=== PATIENT | female | born 1990 | race Caucasian/White ===

== ENCOUNTER 2019-07-03 15:40 | Emergency (ER) | payer MEDICARE, MEDICAID ==
[~2019-07-03] VITALS: Ht 172.7 cm; Wt 139.1 kg
[~2019-07-03 15:40] MED LIST: ASCO-139 PO; CARB200T PO; CHOL200077 PO; CYAN500T63 PO; DULO-31 PO; OMEG-79 PO; TRAM50TA2 PO
[2019-07-03 16:22] VITALS: BP 138/89
== END 2019-07-03 17:04 | disposition home or self-care (01) ==
LOC: ER 15:40
DX: H02.89 Other specified disorders of eyelid (principal); F41.9 Anxiety disorder, unspecified; F32.9 Major depressive disorder, single episode, unspecified; Z98.890 Other specified postprocedural states; Z79.899 Other long term (current) drug therapy; Z88.6 Allergy status to analgesic agent
CPT/HCPCS: 99281

== ENCOUNTER 2019-07-04 08:53 | Day surgery (SDC) | payer MEDICARE, MEDICAID ==
[2019-06-30 15:03] LABS: BASOPHILS % (AUTO) 0.8 % (0-1); EOSINOPHILS # (AUTO) 0.3 X10'3 (0-0.9); EOSINOPHILS % (AUTO) 4.9 % (0-6); LYMPHOCYTES # (AUTO) 2.4 X10'3 (1.1-4.8); LYMPHOCYTES % (AUTO) 37.3 % (21-51); MEAN CORPUSCULAR HEMOGLOBIN 31.8 PG (27.0-31.0); MEAN CORPUSCULAR HGB CONC 34.4 g/dL (33.0-36.5); MEAN CORPUSCULAR VOLUME 92.5 FL (78-98); MEAN PLATELET VOLUME 8.1 FL (7.4-10.4); MONOCYTES # (AUTO) 0.7 X10'3 (0-0.9); PRE OP HEMATOCRIT 40.7 % (35.0-45.0); PRE OP PLATELET COUNT 330 X10'3 (140-440); RED CELL DISTRIBUTION WIDTH 12.2 % (11.5-14.5)
[2019-06-30 15:04] LABS: CLARITY,URINE SLIGHTLY CLOUDY (Clear); COLOR,URINE STRAW (Yellow); GLUCOSE, URINE NEGATIVE (Neg); KETONES,URINE NEGATIVE (Neg); LEUKOCYTE ESTERASE ,URINE NEGATIVE (Neg); NITRITES, URINE NEGATIVE (Neg); OCCULT BLOOD,URINE NEGATIVE (Neg); PH,URINE 6.5 (4.8-8.0); PROTEIN,URINE NEGATIVE (Neg); UROBILINOGEN,URINE 0.2 E.U/dL (0.2-1.0)
[2019-06-30 15:15] LABS: PRE OP PROTIME 10.5 SECONDS (9.0-12.0)
[2019-06-30 15:18] LABS: ALBUMIN 3.8 G/DL (3.4-5.0); ALBUMIN/GLOBULIN RATIO 0.9 (1.1-1.5); ALKALINE PHOSPHATASE 68 IU/L (46-116); BLOOD UREA NITROGEN 13 MG/DL (7-18); BUN/CREATININE RATIO 16.7 (6.6-38.0); CALCIUM 9.5 MG/DL (8.5-10.1); CHLORIDE 107 MMOL/L (99-107); CREATININE 0.78 MG/DL (0.40-0.90); PRE OP ALT 40 U/L (30-65); PRE OP ANION GAP 7 (8-16); PRE OP AST 19 U/L (10-37); PRE OP BILIRUB, TOTAL 0.3 MG/DL (0.0-1.0); PRE OP GLUCOSE 79 MG/DL (70-104); PRE OP SODIUM 143 MMOL/L (135-145); TOTAL CARBON DIOXIDE 28.8 MMOL/L (24-32); TOTAL PROTEIN 8.1 G/DL (6.4-8.2); eGFR 89 ML/MIN
[2019-06-30 15:20] LABS: HCG SERUM QL NEGATIVE
[2019-06-30 15:27] LABS: SQUAMOUS EPITHELIAL CELL,UR FEW /LPF (FEW); UA COLLECTION TYPE CLN CATCH MIDSTREAM
[2019-06-30 15:28] LABS: BACTERIA,URINE 1+ /HPF (Neg); RBC,URINE 0-2 /HPF (0-2); WBC,URINE 0-4 /HPF (0-4)
[~2019-07-04] VITALS: Ht 172.7 cm; Wt 138.6 kg
[2019-07-04] VITALS (25 sets, daily range): BP systolic 121–155; BP diastolic 65–96
[~2019-07-04 08:53] MED LIST changes: +ceFOXitin sod/dextrose 2g/50ml 50 ML IV ONE; +famotidine 20mg tablet PO ONE; +ringers solution, lacted 1,000 ML IV SCH
[2019-07-04] MEDS ORDERED: morphine 10mg/ml inj. ONE (11:46)
[2019-07-04] MEDS ORDERED: LIDOcaine 1% 30ml preserv. free vial ONE (11:47)
[2019-07-04] MEDS ORDERED: BUPIVAcaine/PF 2.5 mg/ml (0.25%) 30ml vial ONE (11:47)
[2019-07-04] MEDS ORDERED: morphine 2 MG/ML inj. syringe IV PRN (11:50)
[2019-07-04] MEDS ORDERED: ringers solution, lacted 1,000 ML IV SCH (11:50)
[2019-07-04] MEDS ORDERED: hydrALAZINE 20mg/ml inj. IV PRN (11:50)
[2019-07-04] MEDS ORDERED: ondansetron/PF 4mg/2ml inj IV PRN (11:50)
[2019-07-04] MEDS ORDERED: labetalol 20mg/4ml (5mg/ml) syringe IV PRN (11:50)
[2019-07-04] MEDS ORDERED: fentaNYL/PF 50MCG/1 ML 2ML syringe IV PRN ×2 (11:50)
[2019-07-04] MEDS ORDERED: morphine 4 MG/ML inj SYRINge IV PRN (11:50)
[2019-07-04] MEDS ORDERED: neostigmine methylsulfate 1 MG/ML 10ml vial ONE (11:54)
[2019-07-04] MEDS ORDERED: dexamethasone sod phosphate 10mg/ml inj ONE (11:54)
[2019-07-04] MEDS ORDERED: glycopyrrolate 0.2mg/ml inj ONE (11:54)
[2019-07-04] MEDS ORDERED: sevoflurane 250ml liquid IH ONE (11:54)
[2019-07-04] MEDS ORDERED: fentaNYL/PF 50MCG/1 ML 2ML syringe ONE (11:58)
[2019-07-04] MEDS ORDERED: midazolam 2 mg/2 ml injection ONE ×2 (11:59)
[2019-07-04] MEDS ORDERED: rocuronium 10mg/ml inj IV ONE (12:13)
[2019-07-04] MEDS ORDERED: propofol inj 20 ML IV ONE (12:13)
[2019-07-04] MEDS ORDERED: LIDOcaine 2% (20mg/ml) 5ml vial ONE (12:13)
[2019-07-04] MEDS ORDERED: ondansetron/PF 4mg/2ml inj ONE (12:14)
[2019-07-04] MEDS ORDERED: naloxone 0.4 mg/ml inj ONE (13:29)
--- NOTE | 2019-07-04 13:36 | NUR ---
Received from OR via [facility], accompanied by Anesthesiologist DR RIVERS and report given by Anesthesiologist. PT DROWSY, NO S/S OF DISTRESS/DISCOMFORT, ABDOMEN W/3 LAP SITES W/DERMABOND CDI, PAIGE PAD IN PLACE. Addendum: 07/04/19 at 1353 by Domenica Lu RN Amended: Links added.
[2019-07-04] MEDS ORDERED: ketorolac trometh. 30mg/ml inj. IV ONE (14:05)
--- NOTE | 2019-07-04 15:40 | NUR ---
WAS GETTING PT READY TO D/C TO HOME AND AFTER PT SAT UP SHE BECAME NAUSEATED, CALL INTO DR. BARROW, UPDATED ORDERS RECEIVED, PT GIVEN 10 REGLAN, WILL MONITOR. Addendum: 07/04/19 at 1559 by Domenica Lu RN Amended: Links added.
[2019-07-04] MEDS ORDERED: metoclopramide 5 mg/ml inj IV ONE (15:45)
--- NOTE | 2019-07-04 17:16 | NUR ---
NAUSEA RESOLVED, PT UP AND AMBULATED, TOLERATING ORAL FLUIDS AND CRACKERS, VOID X 1, D/C INSTRUCTIONS GIVEN AND GONE OVER W/PT AND PTS FAMILY WHOM VERBALIZE UNDERSTANDING, PT D/CD TO HOME VIA W/C TO PRIVATE VEHICLE W/O INCIDENT. Addendum: 07/04/19 at 1748 by Domenica Lu RN Amended: Links added.
== END 2019-07-04 17:16 | disposition home or self-care (01) ==
LOC: PAS 08:53
PROVIDERS: ATTEND Obstetrics & Gynecology
DX: R19.09 Other intra-abdominal and pelvic swelling, mass and lump (principal); D27.1 Benign neoplasm of left ovary; D27.0 Benign neoplasm of right ovary; F32.9 Major depressive disorder, single episode, unspecified; G47.33 Obstructive sleep apnea (adult) (pediatric); F39 Unspecified mood [affective] disorder; E66.01 Morbid (severe) obesity due to excess calories; Z68.42 Body mass index [BMI] 45.0-49.9, adult; Z90.49 Acquired absence of other specified parts of digestive tract; Z98.890 Other specified postprocedural states; Z88.8 Allergy status to other drugs, medicaments and biological substances; Z79.899 Other long term (current) drug therapy; Z79.01 Long term (current) use of anticoagulants
CPT/HCPCS: 36415; 58662; 80053; 81001; 82948; 84703; 85025; 85610; 85730; 86885; 86900; 86901; C1758; J0694; J1100; J2001; J2250; J2270; J2310; J2405; J2704; J2710; J2765; J3010; J3490; J7120; A4618; A7000